=== PATIENT | male | born 1965 | race Asian ===

== ENCOUNTER 2017-05-19 13:15 | Day surgery (SDC) | END 2017-05-19 15:53 | disposition home or self-care (01) ==

== ENCOUNTER 2017-11-30 15:23 | Emergency (ER) | END 2017-11-30 17:14 | disposition left against medical advice (07) ==

== ENCOUNTER 2018-12-30 07:50 | Day surgery (SDC) | payer OTHER ==
[~2018-12-30] VITALS: Ht 167.6 cm; Wt 59.1 kg
[~2018-12-30 07:50] MED LIST: ASPI-817 PO; ATOR40TA68 PO; BRILLINTA PO; CARV6.2579 PO; ISOSORBIDE PO; LISI2.5T59 PO; MTF1000T PO; TAMS0.4C2 PO
[2018-12-30 09:05] VITALS: Ht 167.6 cm; Wt 59.1 kg
[2018-12-30 09:08] VITALS: BP 132/84; PULSE 68; RESP 16
[2018-12-30] MEDS ORDERED: PROPOFOL 20 ML ONE (09:17)
[2018-12-30] MEDS ORDERED: MIDAZOLAM 1 MG/ML 2 ML INJ ONE (09:18)
[2018-12-30 10:25] VITALS: BP 103/75; RESP 15
== END 2018-12-30 10:49 | disposition home or self-care (01) ==
LOC: GIL 07:50
PROVIDERS: ATTEND Internal Medicine Gastroenterology
DX: K21.9 Gastro-esophageal reflux disease without esophagitis (principal); K29.60 Other gastritis without bleeding; I12.9 Hypertensive chronic kidney disease with stage 1 through stage 4 chronic kidney disease, or unspecified chronic kidney disease; N18.9 Chronic kidney disease, unspecified; E11.9 Type 2 diabetes mellitus without complications; Z79.82 Long term (current) use of aspirin; Z79.84 Long term (current) use of oral hypoglycemic drugs
CPT/HCPCS: 82962; 88305; J2250